=== PATIENT | female | born 1975 | race Two or more races ===

== ENCOUNTER 2019-07-06 09:18 | Outpatient (CLI) | payer OTHER ==
[~2019-07-06 09:18] MED LIST: BENTYL10 MG/ML; KETO10TA2 PO; MOTRIN800 MG PO; Mylicon 125MG PO; POLY119PG PO; SKELAXIN800 MG PO; TIGAN100 MG/M2; ZANTAC25 MG/1 ML
== END 2019-07-06 09:25 | disposition home or self-care (01) ==
LOC: SONOGRAMA 09:18
DX: E04.1 Nontoxic single thyroid nodule (principal)

== ENCOUNTER 2020-02-18 12:37 | Emergency (ER) | payer OTHER ==
[~2020-02-18] VITALS: Ht 167.6 cm; Wt 83.9 kg
== END 2020-02-18 16:06 | disposition home or self-care (01) ==
LOC: ER 12:37
DX: R07.89 Other chest pain (principal)

== ENCOUNTER 2020-10-18 22:51 | Emergency (ER) | payer OTHER ==
[~2020-10-18] VITALS: Ht 162.6 cm; Wt 77.1 kg
[2020-10-19] MEDS ORDERED: PROTONIX40 MG PO (03:50)
[2020-10-19] MEDS ORDERED: PHENERGAN25 MG PO (03:50)
[2020-10-19] MEDS ORDERED: PEPCID40 MG PO (03:50)
[2020-10-19] MEDS ORDERED: DICY20TA PO (03:51)
== END 2020-10-19 04:02 | disposition home or self-care (01) ==
LOC: ER 22:51
DX: K29.70 Gastritis, unspecified, without bleeding (principal)